=== PATIENT | female | born 2000 | race Caucasian/White ===

== ENCOUNTER 2024-07-15 19:59 | Emergency (ER) | payer MEDICAID ==
[~2024-07-15] VITALS: Ht 154.9 cm; Wt 40.0 kg
[2024-07-15 20:02] VITALS: O2SAT 99
[2024-07-15 20:09] VITALS: BP 169/88; PULSE 83; RESP 20; TEMP 36.8; O2SAT 100
[2024-07-15] MEDS ORDERED: IBUP-2029 MT (21:12)
== END 2024-07-15 21:29 | disposition home or self-care (01) ==
LOC: ER 19:59
DX: S60.222A Contusion of left hand, initial encounter (principal); Z99.2 Dependence on renal dialysis; Z88.0 Allergy status to penicillin; Z98.890 Other specified postprocedural states; Z79.899 Other long term (current) drug therapy; V89.2XXA Person injured in unspecified motor-vehicle accident, traffic, initial encounter; Y93.89 Activity, other specified; Y92.89 Other specified places as the place of occurrence of the external cause; Y99.8 Other external cause status
CPT/HCPCS: 29125; 73110; 99283